=== PATIENT | female | born 1995 | race African-American/Black ===

== ENCOUNTER 2016-06-15 13:57 | Emergency (ER) | payer OTHER, SELFPAY ==
[~2016-06-15 13:57] MED LIST: Iopamidol 370 76% 100 ML VIAL ONE; Sodium Chloride 0.9% 1,000 ML BAG ONE
[2016-06-15 14:49] LABS: Anisocytosis SLIGHT = 6-15 cells (100X) (0-5/hpf); Band 5 % (5-11); Elliptocytes SLIGHT = 2-5 cells (100X) (0-1/hpf); Hemoglobin 7.9 g/dL (12.0-16.0); Hypochromia SLIGHT = 6-15 cells (100X) (0-5/hpf); Lymphocytes 18 % (21-51); MDiff Complete? YES; Mean Corpuscular HGB CONC 31.1 g/dL (32.0-36.0); Mean Corpuscular Hemoglobin 20.4 pg (27.0-31.0); Mean Corpuscular Volume 65.6 fl (81.0-99.0); Mean Platelet Volume 9.2 fL (7.4-10.4); Microcytosis SLIGHT = 6-15 cells (100X) (0-5/hpf); Monocytes 2 % (0-10); Neutrophil 75 % (42-75); Platelet Count 166 thou/uL (130-400); Poikilocytosis SLIGHT = 6-15 cells (100X) (0-5/hpf); RBC Distribution Width 17.6 % (11.5-14.5); Red Blood Cell (RBC) Count 3.88 mill/uL (4.20-5.40); Schistocytes SLIGHT = 2-5 cells (100X) (0-1/hpf); White Blood Cell (WBC) Count 15.5 thou/uL (4.8-10.8)
[2016-06-15] MEDS ORDERED: Fentanyl 100 MCG/2 ML VIAL ONE (14:54)
[2016-06-15 14:56] LABS: BHCG - Serum NEGATIVE (NEGATIVE); Pregs Control Background? CLEAR/WHITE (CLR/WHITE); Pregs Control Bar Appear? YES (CONTROL BAR)
[2016-06-15 15:01] LABS: ALT (SGPT) 8 U/L (0-55); AST (SGOT) 31 U/L (5-34); Albumin 3.9 g/dL (3.5-5.0); Alkaline Phosphatase 80 U/L (40-150); Anion Gap 16 mmol/L (10-20); BUN (Urea Nitrogen) 12 mg/dL (7.0-18.7); Bilirubin, Total 1.7 mg/dL (0.2-1.2); Calc. Creatinine Clearance 0 mL/min (70-130); Calcium 8.8 mg/dL (7.8-10.44); Carbon Dioxide 19 mmol/L (22-29); Chloride 105 mmol/L (98-107); Estimated GFR-MDRD Greater than 90; Globulin 3.9 g/dL (2.4-3.5); Glucose 114 mg/dL (70-105); Lipase 15 U/L (8-78); Potassium 5.4 mmol/L (3.5-5.1); Protein, Total 7.8 g/dL (6.0-8.3); Sodium 135 mmol/L (136-145)
[2016-06-15 15:14] LABS: Bilirubin Negative (Negative); Blood, Urine Negative (Negative); Glucose, Urine (Dipstick) Negative (Negative); Leukocyte Small (Negative); Nitrite Negative (Negative); Protein, Urine (Dipstick) Trace mg/dL (Neg-Trace); pH, Urine 8.5 (5.0-9.0)
[2016-06-15 15:17] LABS: Clarity Hazy (Clear); RBC/HPF 0-3 HPF (0-3)
[2016-06-15 15:18] LABS: Squamous Epithelial 0-3 HPF (0-3)
[2016-06-15 15:19] LABS: Bacteria/HPF Rare-Few HPF (None Seen)
--- NOTE | 2016-06-15 15:53 | CT ---
CT ABDOMEN AND PELVIS WITH IV CONTRAST: Date: 06/15/16 Multiple axial tomograms obtained through abdomen and pelvis with IV enhancement. HISTORY: Lower abdominal pain. FINDINGS: Lung bases are clear. The liver, spleen, and pancreas appear unremarkable. Adrenal glands and kidneys are unremarkable. No evidence of hydronephrosis. Small bowel loops are normal caliber. The lack of intra-abdominal fat planes and the lack of bowel opacification limits the exam. The appe ndix is not definitely identified in this patient. Images through the pelvis reveal unremarkable uterus. Both ovaries are prominent and there are numer ous bilateral follicles. There is evidence of a small amount of free fluid in the cul-de-sac. There is a right ovarian cyst measuring approximately 1.5 cm. IMPRESSION: 1. Lack of oral and intestinal contrast opacification inhibits this exam in a patient with very lit tle intra-abdominal fat plane. The appendix is not definitely identified. No definite secondary evid ence of appendicitis is seen; however, if there is clinical concern for appendicitis, exam should be repeated after adequate oral contrast administration with enough time to enable distal small bowel and cecal opacification. Alternatively, rectal contrast could be given to opacify the colon and term inal ileum. 2. Small right ovarian cyst and evidence of tiny amount of free fluid in the cul-de-sac. POS: GORAN
[2016-06-15] MEDS ORDERED: Ciprofloxacin Lactate/D5W 400 mg/200 ml Premix ONE (17:36)
--- NOTE | 2016-06-15 19:09 | ERRECORD ---
[facility] EMERGENCY RECORD HPI ABDOMINAL PAIN (15:46 BPIC) CHIEF COMPLAINTS: Patient presents for evaluation of abdominal pain. HISTORIAN: History provided by patient, lower abdominal pain bilaterally. pain is sharp and worse with palpation. it has worsened throughout the day. pt has hx of asthma, anemia. she does not take any medications. she has not been able to eat throughout the day, but has been able to drink some water. she feels light headed and dizzy. QUALITY: Pain is sharp in nature. ROS CONSTITUTIONAL: Historian reports fatigue, reports fever, reports malaise. (15:49 BPIC) EYES: Negative eye review of systems. (15:48 BPIC) ENT: Negative ears, nose, throat review of systems. (15:48 BPIC) CARDIOVASCULAR: Negative cardiovascular review of systems, Historian denies chest pain, denies palpitations. (15:48 BPIC) RESPIRATORY: Negative respiratory review of systems, Historian denies cough, denies shortness of breath. (15:48 BPIC) GI: Historian reports abdominal pain, reports nausea. (15:48 BPIC) MUSCULOSKELETAL: Negative musculoskeletal review of systems. (15:48 BPIC) SKIN: Negative skin review of systems. (15:48 BPIC) NEUROLOGIC: Negative neurologic review of systems. (15:48 BPIC) ENDOCRINE: Negative endocrine review of systems. (15:48 BPIC) HEMO/LYMPHATIC: Normal hematologic/lymphatic system review. (15:48 BPIC) PSYCHIATRIC: Negative psychiatric review of systems. (15:48 BPIC) NOTES: All other ROS is negative except as listed in HPI. (15:48 BPIC) PAST MEDICAL HISTORY MEDICAL HISTORY: Notes: VERIFIED 11-12-14, Notes: asthma, anemia, Flu vaccine not up to date, Tetanus not up to date, Pneumococcal vaccine not up to date, Flu vaccine not up to date, Tetanus immunization up to date, Pneumococcal vaccine not up to date, Past medical history includes pulmonary disease, asthma, Flu vaccine not up to date, Tetanus immunization up to date, Pneumococcal vaccine not up to date, Flu vaccine not up to date, Tetanus not up to date, Pneumococcal vaccine not up to date, Past medical history includes pulmonary disease, asthma, SEASONAL ALLERGIES. verified cm 09/03/2014. (MonJun 15, 2016 14:10 SCHI) FEMALE SURGICAL HISTORY: Surgical history of section, Date of surgery 04/2016, VERIFIED 15, , Surgical history of tonsillectomy, Surgical history of tonsillectomy, Surgical history of tonsillectomy, Date of surgery 2000. verified cm. (MonJun 15, 2016 14:10 SCHI) PSYCHIATRIC HISTORY: , Notes: DENIES, No previous psychiatric history, No previous psychiatric history. (Mon &a-1R&a+25V*p+0X*[id number]*c202B*c15G*c2P*p-0X&a-25V&a+1R Name: Brielle Sexton : 1995 F21 MedRec: [id number] AcctNum: [id number] Prepared: MonJun 15, 2016 21:21 by Interface Page 1 of 4 pMD [facility] EMERGENCY RECORD 2016 14:10 SCHI) SOCIAL HISTORY: Social History includes VERIFIED 17-15, Patient denies alcohol use, Patient denies drug use, Patient has no smoking history, Patient denies alcohol use, Patient denies drug use, Patient has no smoking history, Lives at home, with family, Patient denies alcohol use, Patient denies drug use, Patient has no smoking history, Lives at home, with family, Patient denies alcohol use, Patient denies drug use, Patient has no smoking history, Lives at home, No pets, WITH GRANDMOTHER. (MonJun 15, 2016 14:10 SCHI) FAMILY HISTORY: Paternal history of malignancy:, Family history includes coronary artery disease, Family history includes hypertension. (MonJun 15, 2016 14:10 SCHI) NOTES: I have reviewed and agree with the PMH/PSxH/FamHx/SocHx obtained by the nurse. (15:48 BPIC) KNOWN ALLERGIES amoxicillin: Reaction: Hives VICOdin: Reaction: Hives CURRENT MEDICATIONS No recorded medications VITAL SIGNS VITAL SIGNS: BP: 74/52, Pulse: 97, Resp: 22 (Non-Labored), Temp: 100.5 (Tympanic), Pain: 10 (Constant), O2 sat: 98 on Room Air, Time: 06/15/2016 14:08. (14:08 SCHI) BP: 84/62, Pulse: 70, Time: 06/15/2016 14:27. (14:27 SCHI) BP: 91/65, Time: 06/15/2016 14:34. (14:34 SCHI) BP: 103/75, Time: 06/15/2016 15:45. (15:45 SCHI) BP: 104/77, Pulse: 107, Resp: 18, Temp: 100.8 (Tympanic), Pain: 7, O2 sat: 100 on Room Air, Time: 06/15/2016 17:09. (17:09 SCHI) BP: 104/70, Time: 06/15/2016 16:15. (16:15 SCHI) BP: 98/68, Pulse: 104, Resp: 20, Temp: 100.8 (Tympanic), Pain: 2, O2 sat: 98 on Room Air, Time: 06/15/2016 18:41. (18:41 SCHI) PHYSICAL EXAM (15:48 BPIC) CONSTITUTIONAL: Vital signs reviewed, Patient alert and oriented to person, place and time. HEAD: Head exam included findings of head atraumatic, normocephalic. EYES: Eye exam included findings of eyelids normal to inspection, Pupils equally round and reactive to light, Extraocular muscles intact. ENT: ENT exam normal, Nose exam normal, no nasal deformity, no bleeding from nares, Pharynx exam normal, Mouth exam normal, mucous membranes moist. NECK: Neck exam included findings of normal range of motion, Trachea midline. RESPIRATORY CHEST: Respiratory and chest exam normal, Breath sounds clear, No wheezing, No rales, Chest exam included findings of &a-1R&a+25V*p+0X*[id number]*c202B*c15G*c2P*p-0X&a-25V&a+1R Name: Brielle Sexton : 1995 F21 MedRec: [id number] AcctNum: [id number] Prepared: MonJun 15, 2016 21:21 by Interface Page 2 of 4 pMD [facility] EMERGENCY RECORD chest movement symmetrical, Chest expansion equal. CARDIOVASCULAR: Cardiovascular assessment : Cardiovascular exam included findings of heart rate tachycardic rate and normal rhythm, Heart sounds normal, equal radial and DP pulses. ABDOMEN FEMALE: Abdominal exam included findings of abdomen tender, to the right lower quadrant, periumbilical, to the suprapubic region, moderate intensity. BACK: Back exam included findings of normal inspection, range of motion normal, no costovertebral angle tenderness. UPPER EXTREMITY: Upper extremity exam included findings of inspection normal, Range of motion normal. LOWER EXTREMITY: Lower extremity exam included findings of inspection normal, Range of motion normal. NEURO: Neuro exam findings include patient oriented to person, place and time, Speech normal, no focal motor deficits, no focal sensory deficits. SKIN: Skin exam included findings of skin warm, dry, and normal in color. PSYCHIATRIC: Psychiatric exam included findings of patient oriented to person place and time, Normal affect. RADIOLOGYINTERPRETATION ABDOMEN: Abdomen/pelvis CT scan, with contrast shows, Other findings: right ovarian cyst noted. also noted that lack of fat planes and oral contrast could mas an appendicitis and repeat study should be done to completely rule out appendicitis. (15:51 BPIC) Abdomen/pelvis CT scan, with contrast negative, rectal contrast ct showed no definite evidence of appendicitis. (17:25 BPIC) MEDICATION ADMINISTRATION SUMMARY Drug Name: Cipro I.V., Dose Ordered: 400 mg, Route: IV Fluid Infusion, Status: Given, Time: 17:43 06/15/2016, Drug Name: sodium chloride 0.9 % intravenous, Dose Ordered: 1000 mL, Route: IV Fluid Infusion, Status: Given, Time: 17:07 06/15/2016, Drug Name: fentaNYL (PF) injection, Dose Ordered: 50 mcg, Route: IV Push, Status: Given, Time: 15:07 06/15/2016, Drug Name: sodium chloride 0.9 % intravenous, Dose Ordered: 1000 mL, Route: IV Fluid Infusion, Status: Given, Time: 14:37 06/15/2016, Detailed record available in Medication Service section. DOCTOR NOTES (16:29 BPIC) TEXT: pt with rlq pain, leukocytosis, fever, and anemia. right ovarian cyst seen. pt recently had a heavy period and states that she gets more severely anemic after her periods. looking back through records here, she is often around hgb of 10 and has had a low of 8.1 (she is 7.9 today) ct scan with iv contrast could not completely rule out appy, so rectal contrast repeat ordered. &a-1R&a+25V*p+0X*o3245M*c202B*c15G*c2P*p-0X&a-25V&a+1R Name: Brielle Sexton : 1995 F21 MedRec: [id number] AcctNum: [id number] Prepared: MonJun 15, 2016 21:21 by Interface Page 3 of 4 pMD [facility] EMERGENCY RECORD PROBLEM LIST No recorded problems DIAGNOSIS (17:35 BPIC) FINAL: PRIMARY: Right ovarian cyst, ADDITIONAL: Abdominal Pain, anemia, leukocytosis. PRESCRIPTION (17:35 BPIC) Cipro tablet: TABLET : 500 mg : ORAL : Quantity: 500 Unit: mg Route: ORAL Schedule: 2 times a day Dispense: 14 Unit: tab(s) May substitute. Refills: No Refills . NOTES: No Refills. traMADol: TABLET : 50 mg : ORAL : Quantity: 50 Unit: mg Route: ORAL Schedule: every 6 hours PRN Dispense: 20 Unit: tab(s) May substitute. Refills: No Refills POTENTIAL ALLERGY REACTION: 'VICOdin [hydrocodone/hydrocodone bitartrate]'. NOTES: ^s=No Refills No Refills. DISPOSITION PATIENT: Disposition Type: Discharge, Disposition: *Discharge Home, Condition: Good. (17:35 BPIC) Patient left the department. (18:58 SCHI) Carbajal: BPIC=MD Dior, John [facility]OSPITALWilber=RICKEY Milner, inda &a-1R&a+25V*p+0X*s0190W*c202B*c15G*c2P*p-0X&a-25V&a+1R Name: Brielle Sexton : 1995 F21 MedRec: [id number] AcctNum: [id number] Prepared: MonJun 15, 2016 21:21 by Interface Page 4 of 4 [facility]MD [facility]
--- NOTE | 2016-06-15 19:15 | PICIS ---
[facility] EMERGENCY RECORD TRIAGE (MonJun 15, 2016 14:10 SCHI) PATIENT: NAME: Brielle Sexton, AGE: 21, GENDER: female, : Mon1995, TIME OF GREET: MonJun 15, 2016 13:58, PREFERRED LANGUAGE: Belarusian, RACE: Black or , ETHNICITY: Not or , FALL RISK: NO, ECODE BILLING MAP: [facility], SSN: [id number], Zip Code: [address], KG WEIGHT: 57.61, PHONE: , , , PERSON ID: [id number], PCP: VICKI. (MonJun 15, 2016 14:10 SCHI) TRIAGE NOTES: STOMACH PAIN. (MonJun 15, 2016 14:10 SCHI) COMPLAINT: STOMACH PAIN. (MonJun 15, 2016 14:10 SCHI) ADMISSION: URGENCY: 3 Urgent, ADMISSION SOURCE: Home, TRANSPORT: Walk-in, BED: ED -01. (MonJun 15, 2016 14:10 SCHI) ASSESSMENT: Assessment: ALERT AND ORIENTED X 4, SKIN WARM AND DRY RESP EVEN AND UNLABORED,. (MonJun 15, 2016 14:10 SCHI) PAIN: Patient complains of pain described as, cramping, on a scale 0-10 patient rates pain as 10, Location STOMACH. (MonJun 15, 2016 14:10 SCHI) TRIAGE SCREENING: Patient denies suicidal ideation, Patient denies presence of domestic violence. (MonJun 15, 2016 14:10 SCHI) PROVIDERS: TRIAGE NURSE: Claire Milner RN. (MonJun 15, 2016 14:10 SCHI) VITAL SIGNS: BP 74/52, Pulse 97, Resp 22, (Non-Labored), Temp 100.5, (Tympanic), Pain 10, (Constant), O2 Sat 98, on Room Air, Time 06/15/2016 14:08. (14:08 SCHI) PREVIOUS VISIT ALLERGIES: amoxicillin, VICOdin. (MonJun 15, 2016 14:10 SCHI) KNOWN ALLERGIES amoxicillin: Reaction: Hives VICOdin: Reaction: Hives CURRENT MEDICATIONS No recorded medications VITAL SIGNS VITAL SIGNS: BP: 74/52, Pulse: 97, Resp: 22 (Non-Labored), Temp: 100.5 (Tympanic), Pain: 10 (Constant), O2 sat: 98 on Room Air, Time: 06/15/2016 14:08. (14:08 SCHI) BP: 84/62, Pulse: 70, Time: 06/15/2016 14:27. (14:27 SCHI) BP: 91/65, Time: 06/15/2016 14:34. (14:34 SCHI) BP: 103/75, Time: 06/15/2016 15:45. (15:45 SCHI) BP: 104/77, Pulse: 107, Resp: 18, Temp: 100.8 (Tympanic), Pain: 7, O2 sat: 100 on Room Air, Time: 06/15/2016 17:09. (17:09 SCHI) BP: 104/70, Time: 06/15/2016 16:15. (16:15 SCHI) BP: 98/68, Pulse: 104, Resp: 20, Temp: 100.8 (Tympanic), Pain: 2, O2 sat: 98 on Room Air, Time: 06/15/2016 18:41. (18:41 SCHI) NURSING ASSESSMENT: ABDOMEN &a-1R&a+25V*p+0X*b4500E*c202B*c15G*c2P*p-0X&a-25V&a+1R Name: Brielle Sexton : 1995 F21 MedRec: [id number] AcctNum: [id number] Prepared: MonJun 15, 2016 19:13 by Interface Page 1 of 12 pMD [facility] EMERGENCY RECORD CONSTITUTIONAL: Patient arrives ambulatory, Gait steady, History obtained from patient, Patient appears, in distress due to pain, Patient cooperative, Patient alert, Oriented to person, place and time, Skin warm, Skin dry, Skin normal in color, Mucous membranes pink, Mucous membranes moist, Patient is well-groomed, Patient complains of LOWER ABD PAIN SINCE LAST NIGHT,. (14:15 SCHI) PAIN: cramping pain, to the suprapubic region, constant, on a scale 0-10 patient rates pain as 10. (14:17 SCHI) ABDOMEN: Abdomen assessment findings include abdomen symmetrical, Abdomen soft. (14:15 SCHI) LMP: First day last menstrual period, Last period started on 06/09/2016 14:33, Notes: HEAVY LAST 2 DAYS. (14:17 SCHI) GENITOURINARY FEMALE: Notes: no symptoms stated. (14:15 SCHI) NOTES: Patient tolerated procedure well. (14:15 SCHI) SAFETY: Side rails up, Cart/Stretcher in lowest position, Family at bedside, Hospital ID band on. (14:15 SCHI) NURSING PLAN OF CARE: Pain:, Patient is able to participate in development and implementation of nursing plan of care for pain. (14:15 SCHI) NURSING PROCEDURE: DISCHARGE NOTE (19:00 SCHI) DISCHARGE: Patient discharged to home, ambulating without assistance, family driving, accompanied by other family member, Summary of Care printed/ provided, Patient requested and was provided an electronic copy of Discharge Instructions, Transition record given to patient, Discharge instructions given to patient, Simple or moderate discharge teaching performed, Prescriptions given and instructions on side effects given, Medication reconciliation form given, Above person(s) verbalized understanding of discharge instructions and follow-up care, Patient treated and evaluated by physician. BELONGINGS: Belongings and valuables with patient at time of discharge include:, Belongings remain with patient, Valuables remain with patient. SAFETY: Side rails up, Cart/Stretcher in lowest position, Family at bedside, Hospital ID band on. NURSING PROCEDURE: IV PATIENT IDENITIFIER: Patient actively involved in identification process, Patient's identity verified by patient stating name, Patient's identity verified by patient stating date, Patient's identity verified by hospital ID bracelet. (14:35 SCHI) IV SITE 1: IV therapy indicated for hydration, IV therapy indicated for medication administration, IV established, to the left hand, using a 20 gauge catheter, in one attempt, IV site prepped with chloraprep, Saline lock established, Flushed with normal saline (mls): 10, Labs drawn at time of placement, labeled in the presence of the patient and sent to lab. (14:35 SCHI) &a-1R&a+25V*p+0X*p7325S*c202B*c15G*c2P*p-0X&a-25V&a+1R Name: Brielle Sexton : 1995 F21 MedRec: [id number] AcctNum: [id number] Prepared: MonJun 15, 2016 19:13 by Interface Page 2 of 12 D [facility] EMERGENCY RECORD FOLLOW-UP SITE 1: IV discontinued, due to patient being discharged, catheter intact. (18:39 SCHI) NURSING PROCEDURE: TRANSPORT TO TESTS TRANSPORT TO TESTS: Transport indicated to facilitate diagnosis, Patient transported to CT scan. (15:22 SCHI) Transport indicated to facilitate diagnosis, Patient transported to CT scan. (16:20 SCHI) FOLLOW-UP: After procedure, patient returned to emergency department. (17:00 SCHI) ORDER DETAILS Order Name: CBC with Differential, Status: Active, Time: 14:25 06/15/2016, User: BPIC, - Ordered for: MD Rader Bryan, - Entered by: MD Rader Bryan - MonJun 15, 2016 14:25, - Quantity: 1, Order Name: Comprehensive Metabolic Panel, Status: Active, Time: 14:25 06/15/2016, User: BPIC, - Ordered for: MD Rader Bryan, - Entered by: MD Rader Bryan - MonJun 15, 2016 14:25, - Quantity: 1, Order Name: CT Abdomen Pelvis W Con, Status: Canceled, Time: 16:10 06/15/2016, User: System, - Ordered for: MD Rader Bryan, - Entered by: MD Rader Bryan - MonJun 15, 2016 16:05, - Quantity: 1, Order Name: CT Abdomen Pelvis W Con, Status: Active, Time: 14:25 06/15/2016, User: BPIC, - Ordered for: MD Rader Bryan, - Entered by: MD Rader Bryan - MonJun 15, 2016 14:25, - Quantity: 1, Order Name: Lipase, Status: Active, Time: 14:25 06/15/2016, User: BPIC, - Ordered for: MD Rader Bryan, - Entered by: MD Rader Bryan - MonJun 15, 2016 14:25, - Quantity: 1, Order Name: Test, Serum (BHCG), Status: Active, Time: 14:25 06/15/2016, User: BPIC, - Ordered for: MD Rader Bryan, - Entered by: MD Rader Bryan - MonJun 15, 2016 14:25, - Quantity: 1, Order Name: SALINE LOCK, Status: Done, Time: 14:39 06/15/2016, User: SCHI, - Ordered for: MD Rader Bryan, - Entered by: MD Rader Bryan - MonJun 15, 2016 14:25, - Quantity: 1, Order Name: Urinalysis w/ Rflx Microscopic, Status: Active, Time: 14:25 06/15/2016, User: BPIC, &a-1R&a+25V*p+0X*j9375B*c202B*c15G*c2P*p-0X&a-25V&a+1R Name: Brielle Sexton : 1995 F21 MedRec: [id number] AcctNum: [id number] Prepared: MonJun 15, 2016 19:13 by Interface Page 3 of 12 pMD [facility] EMERGENCY RECORD - Ordered for: MD Rader Bryan, - Entered by: MD Rader Bryan - MonJun 15, 2016 14:25, - Quantity: 1. MEDICATION ADMINISTRATION SUMMARY Drug Name: Cipro I.V., Dose Ordered: 400 mg, Route: IV Fluid Infusion, Status: Given, Time: 17:43 06/15/2016, Drug Name: sodium chloride 0.9 % intravenous, Dose Ordered: 1000 mL, Route: IV Fluid Infusion, Status: Given, Time: 17:07 06/15/2016, Drug Name: fentaNYL (PF) injection, Dose Ordered: 50 mcg, Route: IV Push, Status: Given, Time: 15:07 06/15/2016, Drug Name: sodium chloride 0.9 % intravenous, Dose Ordered: 1000 mL, Route: IV Fluid Infusion, Status: Given, Time: 14:37 06/15/2016, Detailed record available in Medication Service section. MEDICATION SERVICE Cipro I.V.: Order: Cipro I.V. (ciprofloxacin lactate) - Dose: 400 mg : IV Fluid Infusion Schedule: Now Ordered by: John Rader MD Entered by: John Rader MD MonJun 15, 2016 17:33 Documented as given by: Claire Milner RN MonJun 15, 2016 17:43 Patient, Medication, Dose, Route and Time verified prior to administration. IV SITE #1 IVPB or drip, initial infusion, via primary tubing, on an IV pump, Catheter placement confirmed via flush prior to administration, IV site without signs or symptoms of infiltration during medication administration, No swelling during administration, No drainage during administration, IV flushed after administration, Correct patient, time, route, dose and medication confirmed prior to administration, Patient advised of actions and side-effects prior to administration, Allergies confirmed and medications reviewed prior to administration. : Follow Up : Response assessment performed, No signs or symptoms of allergic reaction noted, Decreased pain, Decreased symptoms, _IV SITE #1:_, Medication infusion discontinued, on MonJun 15, 2016 18:39, ., Total amount infused: 200 ML, IV Discontinued with catheter intact. (18:39 SCHI) fentaNYL (PF) injection: Order: fentaNYL (PF) injection (fentanyl citrate/preservative free) - Dose: 50 mcg : IV Push Ordered by: John Rader MD Entered by: John Rader MD MonJun 15, 2016 14:26 Documented as given by: Claire Milner RN MonJun 15, 2016 15:07 Patient, Medication, Dose, Route and Time verified prior to administration. IV SITE #1 IVP, initial medication, Slowly, Catheter placement confirmed via flush prior to administration, IV site without signs or symptoms of infiltration during medication administration, No &a-1R&a+25V*p+0X*c9823E*c202B*c15G*c2P*p-0X&a-25V&a+1R Name: Brielle Sexton : 1995 F21 MedRec: [id number] AcctNum: [id number] Prepared: MonJun 15, 2016 19:13 by Interface Page 4 of 12 pMD [facility] EMERGENCY RECORD swelling during administration, No drainage during administration, IV flushed after administration, Correct patient, time, route, dose and medication confirmed prior to administration, Patient advised of actions and side-effects prior to administration, Allergies confirmed and medications reviewed prior to administration. sodium chloride 0.9 % intravenous: Order: sodium chloride 0.9 % intravenous (0.9 % sodium chloride) - Dose: 1000 mL : IV Fluid Infusion Schedule: Bolus Ordered by: John Rader MD Entered by: John Rader MD MonJun 15, 2016 14:26 Documented as given by: Claire Milner RN MonJun 15, 2016 14:37 Patient, Medication, Dose, Route and Time verified prior to administration. IV SITE #1 IV fluids established for hydration, IV SITE #1 into left hand, IV SITE #1 1st bag hung, amount 1 Liter hung, IV SITE #1 bolus of 1000 ml established, IV SITE #1 Rate of bolus, wide open, via primary tubing, Catheter placement confirmed via flush prior to administration, IV site without signs or symptoms of infiltration during medication administration, No swelling during administration, No drainage during administration, IV flushed after administration, Correct patient, time, route, dose and medication confirmed prior to administration, Patient advised of actions and side-effects prior to administration, Allergies confirmed and medications reviewed prior to administration. : Follow Up : No signs or symptoms of allergic reaction noted, _IV SITE #1:_, IV fluid infusion discontinued, on MonJun 15, 2016 16:00, Total fluid hydration time IV site 1 1 hour, 25 minutes, ., Total amount infused: 1000, IV Line flushed after administration. (16:00 [facility] sodium chloride 0.9 % intravenous: Order: sodium chloride 0.9 % intravenous (0.9 % sodium chloride) - Dose: 1000 mL : IV Fluid Infusion Schedule: Bolus Ordered by: John Rader MD Entered by: John Rader MD MonJun 15, 2016 16:33 , Acknowledged by: Jolene Vivas RN MonJun 15, 2016 16:38 Documented as given by: Claire Milner RN MonJun 15, 2016 17:07 Patient, Medication, Dose, Route and Time verified prior to administration. IV SITE #1 IV fluids established for hydration, IV SITE #1 2nd bag hung, amount 1 Liter hung, IV SITE #1 bolus of 1000 ml established, IV SITE #1 Rate of bolus, wide open, via primary tubing. : Follow Up : Response assessment performed, No signs or symptoms of allergic reaction noted, _IV SITE #1:_, IV fluid infusion discontinued, on MonJun 15, 2016 18:41, Total fluid hydration time IV site 1 1 hour, 35 minutes, ., Total amount infused: 800, IV Discontinued with catheter intact. (18:40 SCHI) HPI ABDOMINAL PAIN (15:46 BPIC) &a-1R&a+25V*p+0X*d0463H*c202B*c15G*c2P*p-0X&a-25V&a+1R Name: Brielle Sexton : 1995 F21 MedRec: [id number] AcctNum: [id number] Prepared: MonJun 15, 2016 19:13 by Interface Page 5 of 12 pMD [facility] EMERGENCY RECORD CHIEF COMPLAINTS: Patient presents for evaluation of abdominal pain. HISTORIAN: History provided by patient, lower abdominal pain bilaterally. pain is sharp and worse with palpation. it has worsened throughout the day. pt has hx of asthma, anemia. she does not take any medications. she has not been able to eat throughout the day, but has been able to drink some water. she feels light headed and dizzy. QUALITY: Pain is sharp in nature. ROS CONSTITUTIONAL: Historian reports fatigue, reports fever, reports malaise. (15:49 BPIC) EYES: Negative eye review of systems. (15:48 BPIC) ENT: Negative ears, nose, throat review of systems. (15:48 BPIC) CARDIOVASCULAR: Negative cardiovascular review of systems, Historian denies chest pain, denies palpitations. (15:48 BPIC) RESPIRATORY: Negative respiratory review of systems, Historian denies cough, denies shortness of breath. (15:48 BPIC) GI: Historian reports abdominal pain, reports nausea. (15:48 BPIC) MUSCULOSKELETAL: Negative musculoskeletal review of systems. (15:48 BPIC) SKIN: Negative skin review of systems. (15:48 BPIC) NEUROLOGIC: Negative neurologic review of systems. (15:48 BPIC) ENDOCRINE: Negative endocrine review of systems. (15:48 BPIC) HEMO/LYMPHATIC: Normal hematologic/lymphatic system review. (15:48 BPIC) PSYCHIATRIC: Negative psychiatric review of systems. (15:48 BPIC) NOTES: All other ROS is negative except as listed in HPI. (15:48 BPIC) PAST MEDICAL HISTORY MEDICAL HISTORY: Notes: VERIFIED 11-12-14, Notes: asthma, anemia, Flu vaccine not up to date, Tetanus not up to date, Pneumococcal vaccine not up to date, Flu vaccine not up to date, Tetanus immunization up to date, Pneumococcal vaccine not up to date, Past medical history includes pulmonary disease, asthma, Flu vaccine not up to date, Tetanus immunization up to date, Pneumococcal vaccine not up to date, Flu vaccine not up to date, Tetanus not up to date, Pneumococcal vaccine not up to date, Past medical history includes pulmonary disease, asthma, SEASONAL ALLERGIES. verified cm 09/03/2014. (MonJun 15, 2016 14:10 SCHI) FEMALE SURGICAL HISTORY: Surgical history of section, Date of surgery 04/2016, VERIFIED 11-12-14, , Surgical history of tonsillectomy, Surgical history of tonsillectomy, Surgical history of tonsillectomy, Date of surgery 2000. verified cm. (MonJun 15, 2016 14:10 SCHI) PSYCHIATRIC HISTORY: , Notes: DENIES, No previous psychiatric history, No previous psychiatric history. (MonJun 15, 2016 14:10 SCHI) &a-1R&a+25V*p+0X*s5292C*c202B*c15G*c2P*p-0X&a-25V&a+1R Name: Brielle Sexton : 1995 F21 MedRec: [id number] AcctNum: [id number] Prepared: MonJun 15, 2016 19:13 by Interface Page 6 of 12 pMD [facility] EMERGENCY RECORD SOCIAL HISTORY: Social History includes VERIFIED 11-12-14, Patient denies alcohol use, Patient denies drug use, Patient has no smoking history, Patient denies alcohol use, Patient denies drug use, Patient has no smoking history, Lives at home, with family, Patient denies alcohol use, Patient denies drug use, Patient has no smoking history, Lives at home, with family, Patient denies alcohol use, Patient denies drug use, Patient has no smoking history, Lives at home, No pets, WITH GRANDMOTHER. (MonJun 15, 2016 14:10 SCHI) FAMILY HISTORY: Paternal history of malignancy:, Family history includes coronary artery disease, Family history includes hypertension. (MonJun 15, 2016 14:10 SCHI) NOTES: I have reviewed and agree with the PMH/PSxH/FamHx/SocHx obtained by the nurse. (15:48 BPIC) PHYSICAL EXAM (15:48 BPIC) CONSTITUTIONAL: Vital signs reviewed, Patient alert and oriented to person, place and time. HEAD: Head exam included findings of head atraumatic, normocephalic. EYES: Eye exam included findings of eyelids normal to inspection, Pupils equally round and reactive to light, Extraocular muscles intact. ENT: ENT exam normal, Nose exam normal, no nasal deformity, no bleeding from nares, Pharynx exam normal, Mouth exam normal, mucous membranes moist. NECK: Neck exam included findings of normal range of motion, Trachea midline. RESPIRATORY CHEST: Respiratory and chest exam normal, Breath sounds clear, No wheezing, No rales, Chest exam included findings of chest movement symmetrical, Chest expansion equal. CARDIOVASCULAR: Cardiovascular assessment : Cardiovascular exam included findings of heart rate tachycardic rate and normal rhythm, Heart sounds normal, equal radial and DP pulses. ABDOMEN FEMALE: Abdominal exam included findings of abdomen tender, to the right lower quadrant, periumbilical, to the suprapubic region, moderate intensity. BACK: Back exam included findings of normal inspection, range of motion normal, no costovertebral angle tenderness. UPPER EXTREMITY: Upper extremity exam included findings of inspection normal, Range of motion normal. LOWER EXTREMITY: Lower extremity exam included findings of inspection normal, Range of motion normal. NEURO: Neuro exam findings include patient oriented to person, place and time, Speech normal, no focal motor deficits, no focal sensory deficits. SKIN: Skin exam included findings of skin warm, dry, and normal in color. PSYCHIATRIC: Psychiatric exam included findings of patient oriented to person place and time, Normal affect. &a-1R&a+25V*p+0X*q2069G*c202B*c15G*c2P*p-0X&a-25V&a+1R Name: Brielle Sexton : 1995 F21 MedRec: [id number] AcctNum: [id number] Prepared: MonJun 15, 2016 19:13 by Interface Page 7 of 12 pMD [facility] EMERGENCY RECORD EVENTS TRANSFER: Triage to Emergency Main ED -01. (14:10 SCHI) Removed from Emergency Main ED -01. (18:58 SCHI) RADIOLOGYINTERPRETATION ABDOMEN: Abdomen/pelvis CT scan, with contrast shows, Other findings: right ovarian cyst noted. also noted that lack of fat planes and oral contrast could mas an appendicitis and repeat study should be done to completely rule out appendicitis. (15:51 BPIC) Abdomen/pelvis CT scan, with contrast negative, rectal contrast ct showed no definite evidence of appendicitis. (17:25 BPIC) DOCTOR NOTES (16:29 BPIC) TEXT: pt with rlq pain, leukocytosis, fever, and anemia. right ovarian cyst seen. pt recently had a heavy period and states that she gets more severely anemic after her periods. looking back through records here, she is often around hgb of 10 and has had a low of 8.1 (she is 7.9 today) ct scan with iv contrast could not completely rule out appy, so rectal contrast repeat ordered. PROBLEM LIST No recorded problems DIAGNOSIS (17:35 BPIC) FINAL: PRIMARY: Right ovarian cyst, ADDITIONAL: Abdominal Pain, anemia, leukocytosis. DISPOSITION PATIENT: Disposition Type: Discharge, Disposition: *Discharge Home, Condition: Good. (17:35 BPIC) Patient left the department. (18:58 SCHI) INSTRUCTION (17:36 BPIC) DISCHARGE: OVARIAN CYST, ANEMIA, IRON DEFICIENCY (ADULT). FOLLOWUP: MD Aaron, [place], [facility], [address] [place] [address], . SPECIAL: Thank you for choosing [facility] for your care today! Please follow up with your doctor in the next 2-3 days. Return to the emergency department with any emergent or worsening concerns. God Bless you!. PRESCRIPTION (17:35 BPIC) Cipro tablet: TABLET : 500 mg : ORAL : Quantity: 500 Unit: mg Route: ORAL Schedule: 2 times a day Dispense: 14 Unit: tab(s) May substitute. Refills: No Refills . NOTES: No Refills. traMADol: TABLET : 50 mg : ORAL : Quantity: 50 Unit: mg Route: ORAL Schedule: every 6 hours PRN Dispense: 20 Unit: &a-1R&a+25V*p+0X*t1780O*c202B*c15G*c2P*p-0X&a-25V&a+1R Name: Brielle Sexton : 1995 F21 MedRec: [id number] AcctNum: [id number] Prepared: MonJun 15, 2016 19:13 by Interface Page 8 of 12 pMD [facility] EMERGENCY RECORD tab(s) May substitute. Refills: No Refills POTENTIAL ALLERGY REACTION: 'VICOdin [hydrocodone/hydrocodone bitartrate]'. NOTES: ^s=No Refills No Refills. IMAGING (18:57 SCHI) *DISCHARGE INSTRUCTIONS RECEIPT: Image captured from scanner. *SUPPLY CHARGE SHEET: Image captured from scanner. ADMIN (18:58 SCHI) DIGITAL SIGNATURE: RICKEY Milner, Claire. RESULTS RADIOLOGY: CT Abdomen Pelvis W Con Observe DT: MonJun 15, 2016 14:28, ABDPELV CT ABDOMEN AND PELVIS WITH IV CONTRAST: Date: 06/15/16 Multiple axial tomograms obtained through abdomen and pelvis with IV enhancement. HISTORY: Lower abdominal pain. FINDINGS: Lung bases are clear. The liver, spleen, and pancreas appear unremarkable. Adrenal glands and kidneys are unremarkable. No evidence of hydronephrosis. Small bowel loops are normal caliber. The lack of intra-abdominal fat planes and the lack of bowel opacification limits the exam. The appe ndix is not definitely identified in this patient. Images through the pelvis reveal unremarkable uterus. Both ovaries are prominent and there are numer ous bilateral follicles. There is evidence of a small amount of free fluid in the cul-de-sac. There is a right ovarian cyst measuring approximately 1.5 cm. IMPRESSION: &a-1R&a+25V*p+0X*c5618I*c202B*c15G*c2P*p-0X&a-25V&a+1R Name: Brilele Sexton : 1995 F21 MedRec: [id number] AcctNum: [id number] Prepared: MonJun 15, 2016 19:13 by Interface Page 9 of 12 pMD [facility] EMERGENCY RECORD 1. Lack of oral and intestinal contrast opacification inhibits this exam in a patient with very low intra-abdominal fat plane. The appendix is not definitely identified. No definite secondary evidenc e of appendicitis is seen; however, if there is clinical concern for appendicitis, exam should be re peated after adequate oral contrast administration with enough time to enable distal small bowel and cecal opacification. Alternatively, rectal contrast could be given to opacify the colon and termina l ileum. 2. Small right ovarian cyst and evidence of tiny amount of free fluid in the cul-de-sac. POS: TESSIE . (16:28 BPIC) LABORATORY: CBC with Differential Collection DT: MonJun 15, 2016 14:34, *White Blood Cell (WBC) Count 15.5 - H thou/uL, Range (4.8-10.8), *Red Blood Cell (RBC) Count 3.88 - L mill/uL, Range (4.20-5.40), *Hemoglobin 7.9 - L g/dL, Range (12.0-16.0), *Hematocrit 25.4 - L %, Range (36.0-47.0), *Mean Corpuscular Volume 65.6 - L fl, Range (81.0-99.0), *Mean Corpuscular Hemoglobin 20.4 - L pg, Range (27.0-31.0), *Mean Corpuscular HGB CONC 31.1 - L g/dL, Range (32.0-36.0), *RBC Distribution Width 17.6 - H %, Range (11.5-14.5), Platelet Count 166 thou/uL, Range (130-400), Mean Platelet Volume 9.2 fL, Range (7.4-10.4), Neutrophil 75 %, Range (42-75), Band 5 %, Range (5-11), *Lymphocytes 18 - L %, Range (21-51), Monocytes 2 %, Range (0-10), Anisocytosis SLIGHT = 6-15 cells (100X), Range (0-5/hpf), Poikilocytosis SLIGHT = 6-15 cells (100X), Range (0-5/hpf), Microcytosis SLIGHT = 6-15 cells (100X), Range (0-5/hpf), Hypochromia SLIGHT = 6-15 cells (100X), Range (0-5/hpf), Schistocytes SLIGHT = 2-5 cells (100X), Range (0-1/hpf), Elliptocytes SLIGHT = 2-5 cells (100X), Range (0-1/hpf). (14:54 MDEB) Lipase Collection DT: MonJun 15, 2016 14:34, Lipase 15 U/L, Range (8-78). (15:11 BPIC) Comprehensive Metabolic Panel Collection DT: MonJun 15, 2016 14:34, *Sodium 135 - L mmol/L, Range (136-145), *Potassium 5.4 - H mmol/L, Range (3.5-5.1), Chloride 105 mmol/L, Range (98-107), &a-1R&a+25V*p+0X*k7160W*c202B*c15G*c2P*p-0X&a-25V&a+1R Name: Brielle Sexton DOB: 1995 F21 MedRec: [id number] AcctNum: [id number] Prepared: MonJun 15, 2016 19:13 by Interface Page 10 of 12 pMD [facility] EMERGENCY RECORD *Carbon Dioxide 19 - L mmol/L, Range (22-29), Anion Gap 16 mmol/L, Range (10-20), BUN (Urea Nitrogen) 12 mg/dL, Range (7.0-18.7), Creatinine 0.74 mg/dL, Range (0.6-1.1), Estimated GFR-MDRD Greater than 90 , Reference Range for Estimated GFR: Greater than 90, mL/min/1.73 m2 NOTE: The MDRD equation has not been validated for use, with the elderly (over 70 years of age), women, patients with, serious comorbid condition or persons with extremes of body size, muscle, mass, or nutritional status. , *Glucose 114 - H mg/dL, Range (70-105), Calcium 8.8 mg/dL, Range (7.8-10.44), *Bilirubin, Total 1.7 - H mg/dL, Range (0.2-1.2), Protein, Total 7.8 g/dL, Range (6.0-8.3), NOTE: Plasma values are generally 0.3 to 0.5 g/dL higher than serum values, due to the presence of fibrinogen. , Albumin 3.9 g/dL, Range (3.5-5.0), *Globulin 3.9 - H g/dL, Range (2.4-3.5), *Alb/Glob Ratio 1.0 - L g/dL, Range (1.2-2.2), Alkaline Phosphatase 80 U/L, Range (40-150), AST (SGOT) 31 U/L, Range (5-34), ALT (SGPT) 8 U/L, Range (0-55). (15:11 BPIC) Test, Serum (BHCG) Collection DT: MonJun 15, 2016 14:34, BHCG - Serum NEGATIVE , Range (NEGATIVE), Method of sensitivity- Indeterminant: results should be repeated, after 48 hours. Positive: results may be detected as early as 4-5 days before a first missed menses. Elimination of BHCG-, Elimination following first trimester D&C: 29-44 Days , Elimination following term : 8-24 Days . (15:11 BPIC) Lipase Collection DT: MonJun 15, 2016 14:34, Lipase 15 U/L, Range (8-78). (15:11 SCHI) Comprehensive Metabolic Panel Collection DT: MonJun 15, 2016 14:34, *Sodium 135 - L mmol/L, Range (136-145), *Potassium 5.4 - H mmol/L, Range (3.5-5.1), Chloride 105 mmol/L, Range (98-107), *Carbon Dioxide 19 - L mmol/L, Range (22-29), Anion Gap 16 mmol/L, Range (10-20), BUN (Urea Nitrogen) 12 mg/dL, Range (7.0-18.7), Creatinine 0.74 mg/dL, Range (0.6-1.1), Estimated GFR-MDRD Greater than 90 , Reference Range for Estimated GFR: Greater than 90, mL/min/1.73 m2 &a-1R&a+25V*p+0X*[id number]*c202B*c15G*c2P*p-0X&a-25V&a+1R Name: Brielle Sexton : 1995 F21 MedRec: [id number] AcctNum: [id number] Prepared: MonJun 15, 2016 19:13 by Interface Page 11 of 12 pMD [facility] EMERGENCY RECORD NOTE: The MDRD equation has not been validated for use, with the elderly (over 70 years of age), women, patients with, serious comorbid condition or persons with extremes of body size, muscle, mass, or nutritional status. , *Glucose 114 - H mg/dL, Range (70-105), Calcium 8.8 mg/dL, Range (7.8-10.44), *Bilirubin, Total 1.7 - H mg/dL, Range (0.2-1.2), Protein, Total 7.8 g/dL, Range (6.0-8.3), NOTE: Plasma values are generally 0.3 to 0.5 g/dL higher than serum values, due to the presence of fibrinogen. , Albumin 3.9 g/dL, Range (3.5-5.0), *Globulin 3.9 - H g/dL, Range (2.4-3.5), *Alb/Glob Ratio 1.0 - L g/dL, Range (1.2-2.2), Alkaline Phosphatase 80 U/L, Range (40-150), AST (SGOT) 31 U/L, Range (5-34), ALT (SGPT) 8 U/L, Range (0-55). (15:11 SCHI) Test, Serum (BHCG) Collection DT: MonJun 15, 2016 14:34, BHCG - Serum NEGATIVE , Range (NEGATIVE), Method of sensitivity- Indeterminant: results should be repeated, after 48 hours. Positive: results may be detected as early as 4-5 days before a first missed menses. Elimination of BHCG-, Elimination following first trimester D&C: 29-44 Days , Elimination following term : 8-24 Days . (15:11 SCHI) Urine Microscopic Collection DT: MonJun 15, 2016 15:14, RBC/HPF 0-3 HPF, Range (0-3), *WBC/HPF 11-20 - H HPF, Range (0-3), Squamous Epithelial 0-3 HPF, Range (0-3), Bacteria/HPF Rare-Few HPF, Range (None Seen). (15:24 MDEB) Urinalysis w/ Rflx Microscopic Collection DT: MonJun 15, 2016 15:14, Color Yellow , Range (Yellow), Clarity Hazy , Range (Clear), Specific [place], Urine 1.020 , Range (1.005-1.030), pH, Urine 8.5 , Range (5.0-9.0), *Leukocyte Small - H , Range (Negative), Nitrite Negative , Range (Negative), Protein, Urine (Dipstick) Trace mg/dL, Range (Neg-Trace), Glucose, Urine (Dipstick) Negative mg/dL, Range (Negative), *Ketone, Urine 15 - H mg/dL, Range (Negative), *Urobilinogen 2.0 - H mg/dL, Range (0.2-1.0), Bilirubin Negative , Range (Negative), Blood, Urine Negative , Range (Negative). (15:24 ALENA) Carbajal: RAVEN=MD Dior, John CARVAJAL=RICKEY Vivas, Jolene MONTANO=RICKEY Milner, Slinda &a-1R&a+25V*p+0X*[id number]*c202B*c15G*c2P*p-0X&a-25V&a+1R Name: Brielle Sexton : 1995 F21 MedRec: [id number] AcctNum: [id number] Prepared: MonJun 15, 2016 19:13 by Interface Page 12 of 12 pMD MTDD
--- NOTE | 2016-06-15 20:13 | CT ---
CT ABDOMEN AND PELVIS WITHOUT IV CONTRAST: Date: 06/15/16 HISTORY: Abdominal pain. FINDINGS: CT of the abdomen and pelvis was performed following rectal contrast administration. An earlier exam with IV contrast was performed at 1520 hours. There is contrast excretion by the kidneys into the pelvicaliceal systems, ureters, and the urinary bladder on the current exam. There is opacification of the colon. Though no contrast is seen fillin g the appendix, an appendix is not definitely identified. There is no evidence of a dilated fluid-fi lled appendix seen. A small right ovarian cyst is again noted. IMPRESSION: No definite evidence of appendicitis. Clinical correlation is recommended. POS: [facility]
== END 2016-06-15 19:00 | disposition home or self-care (01) ==
LOC: MADERS 13:57
DX: N83.201 Unspecified ovarian cyst, right side (principal); D72.829 Elevated white blood cell count, unspecified; D64.9 Anemia, unspecified; J45.909 Unspecified asthma, uncomplicated
CPT/HCPCS: 36415; 74176; 74177; 80053; 81003; 81015; 83690; 84703; 85025; 96361; 96365; 96375; A4353; J0744; J3010; J7050

== ENCOUNTER 2016-11-19 10:13 | Emergency (ER) | payer SELFPAY ==
[2016-11-19 11:14] LABS: Bilirubin Negative (Negative); Clarity Slightly Cloudy (Clear); Glucose, Urine (Dipstick) Negative (Negative); Leukocyte Negative (Negative); Nitrite Negative (Negative); Protein, Urine (Dipstick) Trace mg/dL (Neg-Trace)
[2016-11-19 11:15] LABS: Bacteria/HPF 2+ HPF (None Seen); Blood, Urine Large (Negative); RBC/HPF GREATER THAN 50-TNTC HPF (0-3); Renal Epithelial 0-3 HPF (0-3); Squamous Epithelial 21-50 HPF (0-3); Transitional Epithelial 0-3 HPF (0-3)
[2016-11-19 11:18] LABS: BHCG - Serum Negative (NEGATIVE); Pregs Control Background? CLEAR/WHITE (CLR/WHITE); Pregs Control Bar Appear? YES (CONTROL BAR)
[2016-11-19 11:24] LABS: #Basophils 0.1 thou/uL (0.0-0.2); #Eosinphils 0.4 thou/uL (0.0-0.7); #Lymphocytes 1.6 thou/uL (1.20-3.40); #Monocytes 0.3 thou/uL (0.11-0.59); #Neutrophils 1.9 thou/uL (1.40-6.50); %Basophils 1.4 % (0.0-1.0); %Eosinophils 8.7 % (0.0-10.0); %Lymphocytes 38.5 % (21.0-51.0); %Monocytes 6.3 % (0.0-10.0); %Neutrophils 45.1 % (42.0-75.0); Mean Corpuscular HGB CONC 28.2 g/dL (32.0-36.0); Mean Corpuscular Hemoglobin 16.7 pg (27.0-31.0); Mean Corpuscular Volume 59.1 fl (81.0-99.0); Mean Platelet Volume 5.4 fL (7.4-10.4); Platelet Count 123 thou/uL (130-400); RBC Distribution Width 23.9 % (11.5-14.5); Red Blood Cell (RBC) Count 4.19 mill/uL (4.20-5.40); White Blood Cell (WBC) Count 4.2 thou/uL (4.8-10.8)
[2016-11-19 11:26] LABS: Anisocytosis MARKED = >30 cells (100X) (0-5/hpf); Elliptocytes SLIGHT = 2-5 cells (100X) (0-1/hpf); Hypochromia MODERATE=16-30 cells (100X) (0-5/hpf); Microcytosis MARKED = >30 cells (100X) (0-5/hpf); Poikilocytosis MODERATE=16-30 cells (100X) (0-5/hpf); Target Cells MODERATE= 6-15 cells (100X) (0-1/hpf)
[2016-11-19 11:27] LABS: ALT (SGPT) 6 U/L (8-55); AST (SGOT) 13 U/L (5-34); Albumin 3.8 g/dL (3.5-5.0); Alkaline Phosphatase 75 U/L (40-150); Anion Gap 11 mmol/L (10-20); BUN (Urea Nitrogen) 10 mg/dL (7.0-18.7); Calc. Creatinine Clearance 0 mL/min (70-130); Calcium 8.6 mg/dL (7.8-10.44); Carbon Dioxide 24 mmol/L (22-29); Chloride 109 mmol/L (98-107); Estimated GFR-MDRD Greater than 90; Globulin 3.6 g/dL (2.4-3.5); Glucose 94 mg/dL (70-105); Potassium 4.3 mmol/L (3.5-5.1); Protein, Total 7.4 g/dL (6.0-8.3); Sodium 140 mmol/L (136-145)
== END 2016-11-19 13:10 | disposition home or self-care (01) ==
LOC: MADERS 10:13
DX: D50.9 Iron deficiency anemia, unspecified (principal); J45.909 Unspecified asthma, uncomplicated
CPT/HCPCS: 36415; 80053; 81001; 84703; 85025; 87086; 99284

== ENCOUNTER 2017-02-23 14:05 | Emergency (ER) | payer MEDICAID, SELFPAY ==
[2017-02-23 15:07] LABS: BHCG - Serum POSITIVE (NEGATIVE); Pregs Control Background? CLEAR/WHITE (CLR/WHITE); Pregs Control Bar Appear? YES (CONTROL BAR)
[2017-02-23 15:40] LABS: Bilirubin Negative (Negative); Blood, Urine Large (Negative); Glucose, Urine (Dipstick) Negative (Negative); Leukocyte Negative (Negative); Nitrite Negative (Negative); Protein, Urine (Dipstick) Trace mg/dL (Neg-Trace)
[2017-02-23 15:41] LABS: Clarity Hazy (Clear)
[2017-02-23 15:42] LABS: Bacteria/HPF Rare-Few HPF (None Seen); RBC/HPF 0-3 HPF (0-3); Sperm/HPF Rare HPF (None Seen); WBC/HPF 0-3 HPF (0-3)
== END 2017-02-23 17:06 | disposition home or self-care (01) ==
LOC: MADERS 14:05
DX: O20.0 Threatened abortion (principal); J45.909 Unspecified asthma, uncomplicated; D64.9 Anemia, unspecified; Z79.899 Other long term (current) drug therapy; Z3A.00 Weeks of gestation of pregnancy not specified
CPT/HCPCS: 81003; 81015; 84702; 84703; 99284

== ENCOUNTER 2017-05-16 15:36 | Emergency (ER) | payer OTHER ==
[2017-05-16 16:45] LABS: Bilirubin Negative (Negative); Blood, Urine Negative (Negative); Clarity Clear (Clear); Glucose, Urine (Dipstick) Negative (Negative); Leukocyte Negative (Negative); Nitrite Negative (Negative); Protein, Urine (Dipstick) 30 mg/dL (Neg-Trace); Specific Gravity, Urine 1.025 (1.005-1.030); Urobilinogen 0.2 mg/dL (0.2-1.0); pH, Urine 5.5 (5.0-9.0)
[2017-05-16 16:48] LABS: Pregnancy Test - Urine (BHCG) Negative (Negative); Pregu Control Background? CLEAR/WHITE (CLR/WHITE); Pregu Control Bar Appear? YES (CONTROL BAR); Specific Gravity 1.025 (1.002-1.036)
[2017-05-16 17:06] LABS: Bacteria/HPF Rare-Few HPF (None Seen); RBC/HPF 0-3 HPF (0-3); WBC/HPF 0-3 HPF (0-3)
== END 2017-05-16 17:15 | disposition home or self-care (01) ==
LOC: MADERS 15:36
DX: B34.9 Viral infection, unspecified (principal); J45.909 Unspecified asthma, uncomplicated; D64.9 Anemia, unspecified; Z79.899 Other long term (current) drug therapy
CPT/HCPCS: 81003; 81015; 81025; 99283

== ENCOUNTER 2018-04-30 19:08 | Emergency (ER) | payer OTHER | END 2018-04-30 20:07 | disposition home or self-care (01) | LOC: MADERS 19:08 | DX: O9A.211 Injury, poisoning and certain other consequences of external causes complicating pregnancy, first trimester (principal); O99.011 Anemia complicating pregnancy, first trimester; S30.1XXA Contusion of abdominal wall, initial encounter; O99.511 Diseases of the respiratory system complicating pregnancy, first trimester; J45.909 Unspecified asthma, uncomplicated; Z79.899 Other long term (current) drug therapy; Z3A.10 10 weeks gestation of pregnancy ==

== ENCOUNTER 2018-07-27 23:08 | Emergency (ER) | payer OTHER ==
[2018-07-27] MEDS ORDERED: Acetaminophen 500 MG TAB ONE (23:35)
== END 2018-07-27 23:40 | disposition home or self-care (01) ==
LOC: MADERS 23:08
DX: O99.89 Other specified diseases and conditions complicating pregnancy, childbirth and the puerperium (principal); R10.2 Pelvic and perineal pain; O99.519 Diseases of the respiratory system complicating pregnancy, unspecified trimester; J45.909 Unspecified asthma, uncomplicated; Z79.51 Long term (current) use of inhaled steroids; Z79.899 Other long term (current) drug therapy; Z3A.00 Weeks of gestation of pregnancy not specified
CPT/HCPCS: 99283

== ENCOUNTER 2019-08-24 18:18 | Emergency (ER) | payer OTHER | END 2019-08-24 18:55 | disposition home or self-care (01) | LOC: MADERS 18:18 | DX: J45.909 Unspecified asthma, uncomplicated (principal); B37.3 Candidiasis of vulva and vagina; Z79.899 Other long term (current) drug therapy | CPT/HCPCS: 99283 ==